=== PATIENT | female | born 1955 ===

== ENCOUNTER 2025-06-16 07:00 | Day surgery (SDC) | payer OTHER ==
[2025-06-09 13:18] VITALS: BP 138/77
[~2025-06-16] VITALS: Ht 162.6 cm; Wt 65.3 kg
[~2025-06-16 07:00] MED LIST: EZALLOR SPRINKL10 MG PO; LIPITOR20 MG PO; SINGULAIR10 MG PO; SYNJARDY XR 101 EACH PO; ZESTRIL2.5 MG PO
[2025-06-16] MEDS ORDERED: METRONIDAZOLE/SODIUM CHLORIDE 500 MG/100 ML PIGGYBACK IV ONE (07:19)
[2025-06-16] MEDS ORDERED: POVIDONE-IODINE 118 ML BOTT TOP ONE (07:42)
[2025-06-16] MEDS ORDERED: DIBUCAINE 30 GM TUBE ONE (07:42)
[2025-06-16] MEDS ORDERED: HEMOSTATIC MATRIX 1 KIT KIT TOP ONE (07:42)
[2025-06-16] MEDS ORDERED: LIDOCAINE HCL 1%/EPINEPHRINE 20ML VIAL IJ ONE (07:43)
[2025-06-16] MEDS ORDERED: BUPIVACAINE HCL/Mpf 0.5% 10ML VIAL ONE (07:43)
[2025-06-16] MEDS ORDERED: DEXAMETHASONE SODIUM PHOSPHATE 4 MG/ML VIAL ONE (08:26)
[2025-06-16] MEDS ORDERED: TAMSULOSIN HCL 0.4 MG CAP PO ONE ×2 (09:45→11:43)
[2025-06-16] MEDS ORDERED: OXYCODONE HCL5 MG PO (09:46)
== END 2025-06-16 13:55 | disposition home or self-care (01) ==
LOC: CIR.AMB 07:00
PROVIDERS: ATTEND Surgery
DX: K64.2 Third degree hemorrhoids (principal); K64.4 Residual hemorrhoidal skin tags; K62.5 Hemorrhage of anus and rectum